=== PATIENT | female | born 1970 | race Hispanic/Latino ===

== ENCOUNTER 2018-03-01 04:23 | Emergency (ER) | payer BC, OTHER ==
[~2018-03-01 04:23] MED LIST: ALBU1.252 IH; AMOX-426 PO; CETI-101 PO; CHOL500050 PO; COLC0.6C3 PO; FOLI1TAB15 PO; HYDR200T82 PO; METH25VI17 IJ; NAPR-1192 PO; PANT40TA25 PO; PRAV20TA4 PO; PRED20TA3 PO; TOFA11TA PO
[2018-03-01] MEDS ORDERED: MAG HYDROX/AL HYDROX/SIMETH ES 30 ML SUSP UDCUP ONE (04:44)
[2018-03-01] MEDS ORDERED: HYDROXYZINE HCL 25 MG TABLET ONE (04:44)
[2018-03-01] MEDS ORDERED: LIDOCAINE HCL 2% VISCOUS 15 ML UDCUP ONE (04:44)
[2018-03-01] MEDS ORDERED: ACETAMINOPHEN-CODEINE ELIXIR 5 ML UDCUP ONE (04:45)
[2018-03-01 05:01] LABS: BASOPHILS % (AUTO) 0.5 % (0.0-5.0); EOSINOPHILS % (AUTO) 1.4 % (0.0-8.0); HEMATOCRIT 38.5 % (36-48); LYMPHOCYTES % (AUTO) 33.7 % (21.0-51.0); MEAN CORPUSCULAR HEMOGLOBIN 29.6 pg (27.0-33.0); MEAN CORPUSCULAR HGB CONC 34.5 g/dL (32.0-36.0); MEAN CORPUSCULAR VOLUME 85.8 fL (79-99); MONOCYTES % (AUTO) 6.1 % (3.0-13.0); NEUTROPHILS % (AUTO) 58.3 % (40.0-77.0); PLATELET COUNT (AUTO) 268 K/uL (130-400); RED BLOOD CELL COUNT(AUTO) 4.49 MIL/uL (4.00-5.50); RED CELL DISTRIBUTION WIDTH 14.5 % (11.0-15.5); WHITE BLOOD COUNT (AUTO) 8.7 K/uL (4.8-10.8)
[2018-03-01 05:11] LABS: CREATININE 0.8 mg/dL (0.5-1.5); POTASSIUM 3.3 mmol/L (3.5-5.1)
[2018-03-01 05:16] LABS: ALBUMIN 4.3 g/dL (3.5-5.0); BILIRUBIN,TOTAL 0.3 mg/dL (0.2-1.0); TOTAL PROTEIN, SERUM 8.6 g/dL (6.0-8.3)
[2018-03-01] MEDS ORDERED: ONDANSETRON HCL MDV 20ML 2 MG/ML VIAL ONE (05:24)
== END 2018-03-01 05:32 | disposition home or self-care (01) ==
LOC: EDH 04:23
DX: M06.80 Other specified rheumatoid arthritis, unspecified site (principal); R07.9 Chest pain, unspecified; R00.2 Palpitations; Z90.710 Acquired absence of both cervix and uterus; Z98.890 Other specified postprocedural states
CPT/HCPCS: 36415; 71045; 80053; 85025; 93005; 96374

== ENCOUNTER 2019-05-25 06:29 | Day surgery (SDC) | payer OTHER ==
[2019-05-25] VITALS (9 sets, daily range): BP systolic 101–140; BP diastolic 37–76
[~2019-05-25] VITALS: Ht 157.5 cm; Wt 63.5 kg
[~2019-05-25 06:29] MED LIST changes: -ALBU1.252 IH; -AMOX-426 PO; -CETI-101 PO; -CHOL500050 PO; -COLC0.6C3 PO; -NAPR-1192 PO; -PANT40TA25 PO; -PRED20TA3 PO; +SODIUM CHLORIDE 0.9% 1000ML 1,000 ML IV ONE
[2019-05-25] MEDS ORDERED: CHOL100040 PO (07:16)
[2019-05-25] MEDS ORDERED: PRED2.5T PO (07:16)
[2019-05-25] MEDS ORDERED: ALEN70TA10 PO (07:16)
[2019-05-25] MEDS ORDERED: LACT1CAP79 PO (07:16)
[2019-05-25] MEDS ORDERED: PROPOFOL 10 MG/ML 20ML VIAL IV ONE (09:01)
== END 2019-05-25 10:08 | disposition home or self-care (01) ==
LOC: ENDO 06:29 → DAH 06:29 → ENDO 10:08
PROVIDERS: ATTEND Internal Medicine
DX: K86.2 Cyst of pancreas (principal); K29.70 Gastritis, unspecified, without bleeding; E78.5 Hyperlipidemia, unspecified; K21.9 Gastro-esophageal reflux disease without esophagitis; E11.9 Type 2 diabetes mellitus without complications; M06.9 Rheumatoid arthritis, unspecified; M81.0 Age-related osteoporosis without current pathological fracture; Z90.49 Acquired absence of other specified parts of digestive tract; Z90.710 Acquired absence of both cervix and uterus; Z98.890 Other specified postprocedural states; Z79.899 Other long term (current) drug therapy; Z80.0 Family history of malignant neoplasm of digestive organs
CPT/HCPCS: 43238; 88108; 88305; A4215; A4606; J2704; J7030; 43232

== ENCOUNTER → 2019-10-05 | Outpatient (CLI) | payer OTHER ==
[~2019-10-05] MED LIST changes: +ALEN70TA10 PO; +CHOL100040 PO; +GADODIAMIDE 10 MMOL/20 ML VIAL IV ONE; +LACT1CAP79 PO; +PRED2.5T PO; -SODIUM CHLORIDE 0.9% 1000ML 1,000 ML IV ONE
== END | disposition home or self-care (01) ==
LOC: RAH 12:36
PROVIDERS: ATTEND Internal Medicine Gastroenterology
DX: K86.2 Cyst of pancreas (principal); R93.3 Abnormal findings on diagnostic imaging of other parts of digestive tract
CPT/HCPCS: 74183; A9579

== ENCOUNTER → 2020-09-20 | Outpatient (CLI) | payer BC, OTHER ==
[~2020-09-20] MED LIST changes: -ALEN70TA10 PO; +ALEN70TA69 PO; -GADODIAMIDE 10 MMOL/20 ML VIAL IV ONE
== END | disposition home or self-care (01) ==
LOC: RAH 09:02
PROVIDERS: ATTEND Internal Medicine Gastroenterology
DX: R13.10 Dysphagia, unspecified (principal); K21.9 Gastro-esophageal reflux disease without esophagitis
CPT/HCPCS: 74240

== ENCOUNTER → 2020-10-12 | Outpatient (CLI) | payer BC, OTHER ==
[~2020-10-12] MED LIST changes: +GADODIAMIDE 10 MMOL/20 ML VIAL IV ONE
== END | disposition home or self-care (01) ==
LOC: RAH 07:52
PROVIDERS: ATTEND Internal Medicine Gastroenterology
DX: K86.2 Cyst of pancreas (principal)
CPT/HCPCS: 74183; A9579

== ENCOUNTER 2021-04-16 08:57 | Observation (INO) | payer BC, OTHER ==
[~2021-04-16] VITALS: Ht 157.5 cm; Wt 64.7 kg
[~2021-04-16 08:57] MED LIST changes: -ALEN70TA69 PO; +ALEN70TA80 PO; -GADODIAMIDE 10 MMOL/20 ML VIAL IV ONE
[2021-04-16 08:59] VITALS: BP_SYST 87
[2021-04-16] MEDS ORDERED: KETOROLAC 30MG VIAL (30MG/ML) IV SCH (10:00)
[2021-04-16] MEDS ORDERED: ONDANSETRON 4MG INJ IVP SCH (10:00)
[2021-04-16 10:02] LABS: BASOPHILS % (AUTO) 0.1 % (0.0-5.0); EOSINOPHILS % (AUTO) 0.5 % (0.0-8.0); HEMATOCRIT 36.1 % (36-48); LYMPHOCYTES % (AUTO) 13.9 % (21.0-51.0); MEAN CORPUSCULAR HEMOGLOBIN 28.7 pg (27.0-33.0); MEAN CORPUSCULAR VOLUME 92.6 fL (79-99); MONOCYTES % (AUTO) 4.1 % (3.0-13.0); PLATELET COUNT (AUTO) 297 K/uL (130-400); WHITE BLOOD COUNT (AUTO) 8.4 K/uL (4.8-10.8)
[2021-04-16 10:25] LABS: APPEARANCE,URINE Cloudy (CLEAR); BILIRUBIN,URINE Small (NEGATIVE); COLOR,URINE Dark Yellow (YELLOW); GLUCOSE, URINE (UA) Negative (NEGATIVE); KETONES,URINE Negative (NEGATIVE); LEUKOCYTE ESTERASE ,URINE Negative (NEGATIVE); NITRATE,URINE Positive (NEGATIVE); OCCULT BLOOD,URINE Negative (NEGATIVE); PH,URINE 6.5 (5.0-8.0); PROTEIN,URINE Negative (NEGATIVE); UROBILINOGEN,URINE 0.2 mg/dL (0.2-1.0)
[2021-04-16 10:25] LABS: ALANINE AMINOTRANSFERASE 22 U/L (12-78); ALBUMIN 3.8 g/dL (3.5-5.0); ASPARTATE AMINOTRANSFERASE 23 U/L (10-37); BILIRUBIN,TOTAL 0.4 mg/dL (0.2-1.0); CARBON DIOXIDE 32 mmol/L (21-32); CHLORIDE 104 mmol/L (101-111); CREATINE KINASE, TOTAL 195 U/L (21-232); CREATININE 0.8 mg/dL (0.5-1.5); GLOMERULAR FILTR. RATE CALC 80 mL/min (>60); GLUCOSE,RANDOM 108 mg/dL (70-105); MYOGLOBIN 41 ng/mL (10-92); SODIUM SERUM 144 mmol/L (136-145); TOTAL PROTEIN, SERUM 7.9 g/dL (6.0-8.3); TROPONIN I < 0.04 ng/mL (0.00-0.06); UREA NITROGEN, BLOOD 13 mg/dL (7-18)
[2021-04-16 10:26] LABS: INR 1.01 (0.85-1.15); POTASSIUM 2.9 mmol/L (3.5-5.1)
[2021-04-16] MEDS ORDERED: POTASSIUM BICARB/CIT AC 25 MEQ TABLET.EFF PO SCH (10:30)
[2021-04-16 10:31] LABS: BACTERIA,URINE Many /HPF (None Seen); RBC,URINE 0-1 /HPF (0-1); SQUAMOUS EPITHELIAL CELL,UR Rare /HPF (0-2); WBC,URINE 0-1 /HPF (0-1)
[2021-04-16] MEDS ORDERED: MORPHINE 2 MG SYG IV PRN (13:30)
[2021-04-16] MEDS ORDERED: NITROGLYCERIN 0.4 MG SL TAB SL PRN (13:30)
[2021-04-16] MEDS ORDERED: LIDOCAINE HCL-MPF 1% 2ML VIAL IV PRN (13:30)
[2021-04-16] MEDS ORDERED: ONDANSETRON 4MG INJ IV PRN (13:30)
[2021-04-16] MEDS ORDERED: KCL 20 MEQ ERTAB PO PRN (13:30)
[2021-04-16] MEDS ORDERED: KETOROLAC 15MG/ML VIAL (15MG/ML) IV PRN (13:30)
[2021-04-16] MEDS ORDERED: POTASSIUM CHLORIDE 10MEQ/100ML 100 ML IV PRN (13:30)
[2021-04-16] MEDS ORDERED: ACETAMINOPHEN 325 MG TAB PO PRN ×2 (13:30)
[2021-04-16] MEDS ORDERED: POTASSIUM CHLORIDE 10% ELIXIR 20 MEQ/15 ML UDCUP PO PRN (13:30)
[2021-04-16 13:52] LABS: HEMOGLOBIN A1C 5.3 % (4.0-6.0)
[2021-04-16 13:58] LABS: THYROID STIMULATING HORMONE 2.19 uIU/mL (0.36-3.74)
[2021-04-16 14:03] LABS: B-TYPE NATRIURETIC PEPTIDE 63 pg/mL (0-100)
[2021-04-16 14:39] LABS: ERYTHROCYTE SEDIMENTATION RATE 55 MM/HR (0-30)
[2021-04-16 15:36] LABS: CREATININE 0.8 mg/dL (0.5-1.5); POTASSIUM 3.9 mmol/L (3.5-5.1)
[2021-04-16 17:02] VITALS: BP 139/70
[2021-04-16 17:18] VITALS: BP 114/60
[2021-04-16] MEDS ORDERED: PANTOPRAZOLE 40 MG TAB DR PO ONE (17:45)
[2021-04-16] MEDS ORDERED: COLCHICINE 0.6 MG TABLET PO ONE (18:30)
[2021-04-16] MEDS: 0.9%NACL 1000ML 1,000 ML IV SCH (18:33)
[2021-04-16] MEDS: IBUPROFEN 400 MG TABLET PO SCH (18:33)
[2021-04-16] MEDS ORDERED: PREDNISONE 5 MG TABLET PO SCH (21:00)
[2021-04-16] MEDS ORDERED: SULFASALAZINE 500 MG TAB.DR PO SCH (21:00)
[2021-04-16 22:30] VITALS: BP 111/48
[2021-04-16] MEDS ORDERED: PRAV40TA3 PO (23:06)
[2021-04-16] MEDS ORDERED: UPAD15TA PO (23:06)
[2021-04-16] MEDS ORDERED: SULF500T8 PO (23:06)
[2021-04-16] MEDS ORDERED: MONT10TA21 PO (23:06)
[2021-04-16] MEDS ORDERED: HYDR200T4 PO (23:06)
[2021-04-16] MEDS ORDERED: ALEN70TA2 PO (23:06)
[2021-04-16] MEDS ORDERED: PANT40TA54 PO (23:06)
[2021-04-16] MEDS ORDERED: FOLI1 PO (23:06)
[2021-04-16] MEDS ORDERED: CHOL100040 PO (23:06)
[2021-04-16] MEDS ORDERED: METH2.5T6 PO (23:06)
[2021-04-16] MEDS ORDERED: PRED2.5T PO (23:06)
[2021-04-17] MEDS: IBUPROFEN 400 MG TABLET PO SCH (01:18)
[2021-04-17 04:15] VITALS: BP 92/62
[2021-04-17 04:32] LABS: BASOPHILS % (AUTO) 0.1 % (0.0-5.0); EOSINOPHILS % (AUTO) 0.5 % (0.0-8.0); LYMPHOCYTES % (AUTO) 16.7 % (21.0-51.0); MEAN CORPUSCULAR HEMOGLOBIN 28.5 pg (27.0-33.0); MEAN CORPUSCULAR HGB CONC 31.7 g/dL (32.0-36.0); MEAN CORPUSCULAR VOLUME 90.1 fL (79-99); MONOCYTES % (AUTO) 6.8 % (3.0-13.0); NEUTROPHILS % (AUTO) 75.4 % (40.0-77.0); PLATELET COUNT (AUTO) 250 K/uL (130-400); RED BLOOD CELL COUNT(AUTO) 3.33 MIL/uL (4.00-5.50); RED CELL DISTRIBUTION WIDTH 14.8 % (11.0-15.5)
[2021-04-17 04:57] LABS: CREATININE 0.8 mg/dL (0.5-1.5)
[2021-04-17 04:59] LABS: POTASSIUM 2.9 mmol/L (3.5-5.1)
[2021-04-17] MEDS: 0.9%NACL 1000ML 1,000 ML IV SCH ×2 (07:05→20:48)
[2021-04-17 07:30] VITALS: BP 120/73
[2021-04-17] MEDS: IBUPROFEN 600 MG TABLET PO SCH ×3 (07:58→23:36)
[2021-04-17] MEDS: HYDROXYCHLOROQUINE SULFATE 200 MG TAB PO SCH (08:00)
[2021-04-17] MEDS: MONTELUKAST SODIUM 10 MG TAB PO SCH (08:01)
[2021-04-17] MEDS: FOLIC ACID 1 MG TABLET PO SCH (08:05)
[2021-04-17] MEDS ORDERED: ASPIRIN 325 MG TABLET PO SCH (09:00)
[2021-04-17] MEDS ORDERED: HYDROXYCHLOROQUINE SULFATE 200 MG TAB PO SCH (09:00)
[2021-04-17] MEDS: VIT D3 PO SCH (09:00)
[2021-04-17] MEDS ORDERED: PANTOPRAZOLE 40 MG TAB DR PO SCH (09:00)
[2021-04-17] MEDS: SULFASALAZINE 500 MG TAB.DR PO SCH ×2 (09:00→21:00)
[2021-04-17] MEDS: POTASSIUM CHLORIDE 10% ELIXIR 20 MEQ/15 ML UDCUP PO SCH (10:24)
[2021-04-17] MEDS: COLCHICINE 0.6 MG TABLET PO SCH ×2 (10:45→21:13)
[2021-04-17 12:00] VITALS: BP 119/74
[2021-04-17] MEDS: CEFTRIAXONE 1G VIAL IVP SCH (15:12)
[2021-04-17 16:34] VITALS: BP 118/78
[2021-04-17 20:00] VITALS: BP 128/70
[2021-04-17] MEDS: PANTOPRAZOLE 40 MG TAB DR PO SCH (20:48)
[2021-04-17] MEDS ORDERED: ATORVASTATIN 10 MG TABLET PO SCH (21:00)
[2021-04-17] MEDS ORDERED: RINVOQ 15 MG PO SCH (21:00)
[2021-04-17 23:43] VITALS: BP 120/74
[2021-04-18 04:00] VITALS: BP 137/85
[2021-04-18 05:40] LABS: BASOPHILS % (AUTO) 0.3 % (0.0-5.0); EOSINOPHILS % (AUTO) 1.4 % (0.0-8.0); HEMATOCRIT 31.2 % (36-48); LYMPHOCYTES % (AUTO) 29.9 % (21.0-51.0); MEAN CORPUSCULAR HEMOGLOBIN 27.8 pg (27.0-33.0); MEAN CORPUSCULAR HGB CONC 30.8 g/dL (32.0-36.0); MEAN CORPUSCULAR VOLUME 90.4 fL (79-99); MONOCYTES % (AUTO) 5.2 % (3.0-13.0); NEUTROPHILS % (AUTO) 62.9 % (40.0-77.0); PLATELET COUNT (AUTO) 247 K/uL (130-400); RED BLOOD CELL COUNT(AUTO) 3.45 MIL/uL (4.00-5.50); WHITE BLOOD COUNT (AUTO) 5.8 K/uL (4.8-10.8)
[2021-04-18 05:58] LABS: CREATININE 0.8 mg/dL (0.5-1.5); CRP QUANTITATIVE 160.5 mg/L (0.00-9.0); POTASSIUM 3.7 mmol/L (3.5-5.1)
[2021-04-18 06:51] LABS: ERYTHROCYTE SEDIMENTATION RATE 85 MM/HR (0-30)
[2021-04-18] MEDS: PANTOPRAZOLE 40 MG TAB DR PO SCH (07:41)
[2021-04-18] MEDS: IBUPROFEN 600 MG TABLET PO SCH (07:41)
[2021-04-18] MEDS: HYDROXYCHLOROQUINE SULFATE 200 MG TAB PO SCH (07:41)
[2021-04-18] MEDS: VIT D3 PO SCH (07:42)
[2021-04-18] MEDS: FOLIC ACID 1 MG TABLET PO SCH (07:42)
[2021-04-18] MEDS: SULFASALAZINE 500 MG TAB.DR PO SCH (07:42)
[2021-04-18] MEDS: COLCHICINE 0.6 MG TABLET PO SCH (07:42)
[2021-04-18] MEDS: MONTELUKAST SODIUM 10 MG TAB PO SCH (07:42)
[2021-04-18] MEDS: POTASSIUM CHLORIDE 10% ELIXIR 20 MEQ/15 ML UDCUP PO SCH (07:42)
[2021-04-18] MEDS: 0.9%NACL 1000ML 1,000 ML IV SCH (07:44)
[2021-04-18 08:00] VITALS: BP 128/78
[2021-04-18] MEDS ORDERED: PREDNISONE 5 MG TABLET PO SCH (09:00)
[2021-04-18] MEDS ORDERED: POTASSIUM CHLORIDE 10% ELIXIR 20 MEQ/15 ML UDCUP PO SCH (09:00)
[2021-04-18] MEDS ORDERED: COLC0.6T73 PO (09:19)
[2021-04-18] MEDS ORDERED: NAPR-1113 PO (09:19)
[2021-04-18] MEDS: CEFTRIAXONE 1G VIAL IVP SCH (10:31)
[2021-04-18 11:31] VITALS: BP 118/71
[2021-04-18] MEDS ORDERED: CEFU500T67 PO (13:58)
[2021-04-18] MEDS ORDERED: PANT40TA54 PO (14:00)
[2021-04-18] MEDS ORDERED: NAPROXEN 250 MG TAB PO SCH (21:00)
== END 2021-04-18 14:43 | disposition home or self-care (01) ==
LOC: EDH 08:57 → EDHIP 13:18 → 4CH 21:52
PROVIDERS: ADMIT Internal Medicine; ATTEND Internal Medicine
DX: I30.9 Acute pericarditis, unspecified (principal); E87.6 Hypokalemia; M06.9 Rheumatoid arthritis, unspecified; N39.0 Urinary tract infection, site not specified; I11.9 Hypertensive heart disease without heart failure; D84.9 Immunodeficiency, unspecified; D64.9 Anemia, unspecified; E78.5 Hyperlipidemia, unspecified; J44.9 Chronic obstructive pulmonary disease, unspecified; Z79.52 Long term (current) use of systemic steroids; Z79.83 Long term (current) use of bisphosphonates; Z79.899 Other long term (current) drug therapy; Z90.710 Acquired absence of both cervix and uterus
CPT/HCPCS: 36415 ×3; 71045; 80048 ×3; 80053; 80061; 81001; 82550; 83036; 83735; 83874; 83880; 84132; 84443; 84484 ×3; 85025 ×3; 85610; 85651 ×2; 86140 ×2; 87077; 87088; 87186; 93005 ×3; 93306; 93356; 96361 ×3; 96365; 96366; 96375 ×2; 96376; 99285; G0378 ×48; J0696 ×2; J1885; J2405; J7030 ×2; J7512 ×2

== ENCOUNTER → 2023-01-20 | Outpatient (CLI) | payer BC, OTHER ==
[~2023-01-20] MED LIST changes: -ALEN70TA80 PO; +ALEN70TA85 PO; +FOLI1 PO; -FOLI1TAB15 PO; +GADOTERATE MEGLUMINE 10 MMOL/20 ML VIAL IV ONE; +HYDR200T4 PO; -HYDR200T82 PO; -LACT1CAP79 PO; +LIDOP TD; +METH2.5T6 PO; +METH2.5T7 PO; -METH25VI17 IJ; +MONT-46 PO; +PANT40TA54 PO; -PRAV20TA4 PO; +PRAV40TA3 PO; +SULF500T PO; +SULF500T8 PO; -TOFA11TA PO; +UPAD15TA PO
== END | disposition home or self-care (01) ==
LOC: RAH 07:40
PROVIDERS: ATTEND Internal Medicine Gastroenterology
DX: K86.2 Cyst of pancreas (principal); Z90.49 Acquired absence of other specified parts of digestive tract
CPT/HCPCS: 74183; A9575

== ENCOUNTER 2023-05-04 10:58 | Emergency (ER) | payer BC, OTHER ==
[~2023-05-04] VITALS: Ht 157.5 cm; Wt 68.0 kg
[~2023-05-04 10:58] MED LIST changes: -GADOTERATE MEGLUMINE 10 MMOL/20 ML VIAL IV ONE; -HYDR200T4 PO; +HYDR200T75 PO
[2023-05-04] MEDS ORDERED: DEXAMETHASONE SOD PHOSPHATE 4 MG/ML 1ML VIAL IVP ONE (11:30)
[2023-05-04] MEDS ORDERED: KETOROLAC 15MG/ML VIAL (15MG/ML) IV ONE (11:30)
[2023-05-04 12:05] LABS: BASOPHILS % (AUTO) 0.2 % (0.0-5.0); EOSINOPHILS % (AUTO) 0.6 % (0.0-8.0); HEMATOCRIT 36.9 % (36-48); LYMPHOCYTES % (AUTO) 12.3 % (21.0-51.0); MEAN CORPUSCULAR HEMOGLOBIN 29.1 pg (27.0-33.0); MEAN CORPUSCULAR HGB CONC 31.7 g/dL (32.0-36.0); MEAN CORPUSCULAR VOLUME 91.8 fL (79-99); MONOCYTES % (AUTO) 4.7 % (3.0-13.0); NEUTROPHILS % (AUTO) 81.8 % (40.0-77.0); PLATELET COUNT (AUTO) 232 K/uL (130-400); RED BLOOD CELL COUNT(AUTO) 4.02 MIL/uL (4.00-5.50); RED CELL DISTRIBUTION WIDTH 15.7 % (11.0-15.5); WHITE BLOOD COUNT (AUTO) 11.5 K/uL (4.8-10.8)
[2023-05-04 12:42] LABS: ALBUMIN 3.8 g/dL (3.5-5.0); CREATININE 0.7 mg/dL (0.5-1.5); TOTAL PROTEIN, SERUM 7.6 g/dL (6.0-8.3)
[2023-05-04 12:44] LABS: POTASSIUM 2.9 mmol/L (3.5-5.1)
[2023-05-04 13:55] LABS: APPEARANCE,URINE CLEAR (CLEAR); BILIRUBIN,URINE NEGATIVE (NEGATIVE); COLOR,URINE YELLOW (YELLOW); GLUCOSE, URINE (UA) NEGATIVE (NEGATIVE); KETONES,URINE NEGATIVE (NEGATIVE); LEUKOCYTE ESTERASE ,URINE NEGATIVE Leu/uL (NEGATIVE); NITRATE,URINE NEGATIVE (NEGATIVE); OCCULT BLOOD,URINE NEGATIVE (NEGATIVE); PH,URINE 6.5 (5.0-8.0); PROTEIN,URINE 20 mg/dL (NEGATIVE); UROBILINOGEN,URINE 0.2 mg/dL (0.2-1.0)
[2023-05-04 14:02] LABS: BACTERIA,URINE RARE /HPF (None Seen); MUCUS,URINE FEW LPF (None Seen); SQUAMOUS EPITHELIAL CELL,UR RARE /HPF (0-2)
[2023-05-04] MEDS ORDERED: KCL 20 MEQ ERTAB PO ONE (14:30)
[2023-05-04] MEDS ORDERED: NAPR375T6 PO (15:00)
[2023-05-04] MEDS ORDERED: COLC0.6T73 PO ×2 (15:00)
[2023-05-04] MEDS ORDERED: POTA20PA41 PO (15:27)
[2023-05-04 15:32] VITALS: BP 132/80
== END 2023-05-04 15:31 | disposition home or self-care (01) ==
LOC: EDH 10:58
DX: I30.9 Acute pericarditis, unspecified (principal); Z90.710 Acquired absence of both cervix and uterus; Z90.49 Acquired absence of other specified parts of digestive tract; Z79.899 Other long term (current) drug therapy; Z98.890 Other specified postprocedural states
CPT/HCPCS: 93306; 99284; 96374; 71045; 96375; 84484; 80053; 85025; 83605; 86140; 81001; 36415; 93005; J1100; J1885

== ENCOUNTER → 2023-05-19 | Outpatient (CLI) | payer BC, OTHER ==
[~2023-05-19] MED LIST changes: +COLC0.6T73 PO; +NAPR375T6 PO; +POTA20PA41 PO
[2023-05-19 16:34] LABS: BASOPHILS % (AUTO) 0.3 % (0.0-5.0); EOSINOPHILS % (AUTO) 0.5 % (0.0-8.0); HEMATOCRIT 37.7 % (36-48); LYMPHOCYTES % (AUTO) 13.8 % (21.0-51.0); MEAN CORPUSCULAR VOLUME 90.2 fL (79-99); MONOCYTES % (AUTO) 4.6 % (3.0-13.0); NEUTROPHILS % (AUTO) 80.5 % (40.0-77.0); PLATELET COUNT (AUTO) 291 K/uL (130-400); RED BLOOD CELL COUNT(AUTO) 4.18 MIL/uL (4.00-5.50); WHITE BLOOD COUNT (AUTO) 7.6 K/uL (4.8-10.8)
[2023-05-19 16:47] LABS: CREATININE 0.8 mg/dL (0.5-1.5); CRP QUANTITATIVE 19.6 mg/L (0.00-9.0); POTASSIUM 3.6 mmol/L (3.5-5.1)
== END | disposition home or self-care (01) ==
LOC: LAB 15:19
PROVIDERS: ATTEND Internal Medicine Cardiovascular Disease
DX: E78.5 Hyperlipidemia, unspecified (principal); I31.9 Disease of pericardium, unspecified
CPT/HCPCS: 36415; 80048; 85025; 86140

== ENCOUNTER → 2024-03-18 | Outpatient (CLI) | payer BC, OTHER ==
[~2024-03-18] MED LIST changes: +GADOTERATE MEGLUMINE 10 MMOL/20 ML VIAL IV ONE
== END | disposition home or self-care (01) ==
LOC: RAH 13:01
PROVIDERS: ATTEND Internal Medicine Gastroenterology
DX: K86.2 Cyst of pancreas (principal); R16.0 Hepatomegaly, not elsewhere classified
CPT/HCPCS: 74183; A9575

== ENCOUNTER → 2025-04-24 | Outpatient (CLI) | payer BC, OTHER ==
[~2025-04-24] MED LIST changes: -GADOTERATE MEGLUMINE 10 MMOL/20 ML VIAL IV ONE; +NAPR-1505 PO; -NAPR375T6 PO; -PRAV40TA3 PO; +PRAV40TA62 PO
--- NOTE | 2025-04-24 18:34 | HMCIMG ---
US PELVIC NON-OB COMP HISTORY: Pelvic pain COMPARISON: None TECHNIQUE: Transabdominal pelvic ultrasound study was performed. FINDINGS: The uterus has been removed. Right ovary is not seen. The left ovary measures 1.5 x 1.2 x 1.3 cm. Flow is seen in the left ovary. No free fluid is seen in the cul-de-sac. IMPRESSION: 1. No adnexal mass is seen.
== END | disposition home or self-care (01) ==
LOC: RAH 12:26
PROVIDERS: ATTEND Family Medicine
DX: R10.2 Pelvic and perineal pain (principal); Z90.710 Acquired absence of both cervix and uterus
CPT/HCPCS: 76856

== ENCOUNTER 2025-08-21 02:50 | Emergency (ER) | payer BC, OTHER ==
[~2025-08-21] VITALS: Ht 157.5 cm; Wt 68.0 kg
[~2025-08-21 02:50] MED LIST changes: -COLC0.6T73 PO; +COLC0.6T79 PO
--- NOTE | 2025-08-21 03:15 | ERN ---
ED Note History of Present Illness Stated Complaint: CP Chief Complaint: Chest Pain Time Seen by MD: 02:53 Dictation: This is a 55-year-old female who presents to the emergency room with complaints of midsternal chest pain which is burning in nature. There is no radiation to left arm jaw. No nausea vomitings. No sour eructations. She had a cholecystectomy in the past. No diaphoresis no fever chills or rigors. No history of any palpitations. Patient was recently diagnosed with a UTI and she has been on antibiotics. Patient has been off her disease modifying agents due to UTI. She began experiencing mid chest pain and extremely tender to touch. He denied worsening chest pain on leaning forward. Temperature 98.8 pulse 81 respirations 20 blood pressure 143/77 with a pulse oximetry of 100% on room air Her chronic medical problems include rheumatoid arthritis on chloroquine, methotrexate, Rinvoq and prednisone daily, history of pericarditis, UTI Allergies: Coded Allergies: No Known Drug Allergies (Unverified Allergy, Unknown, 06/11/16) Home Meds Active Scripts Potassium Chloride (Klor-Con) 20 Meq Packet, 20 MEQ PO DAILY for 5 Days, #5 PKT Prov:HARSHIL MUNOZ NP 05/04/23 Naproxen (Naproxen) 375 Mg Tablet., 375 MG PO BID for 10 Days, #20 TAB Prov:HARSHIL MUNOZ HEALTH AND PHYSICAL EDUCATION TEACHER 05/04/23 Colchicine (Colchicine) 0.6 Mg Tablet, 0.6 MG PO DAILY for 9 Days, #9 TAB Prov:HARSHIL MUNOZ HEALTH AND PHYSICAL EDUCATION TEACHER 05/04/23 Colchicine (Colchicine) 0.6 Mg Tablet, 0.6 MG PO BID for 1 Day, #2 TAB Prov:HARSHIL MUNOZ HEALTH AND PHYSICAL EDUCATION TEACHER 05/04/23 Lidocaine (Lidoderm Patch 5%) 1 Patch Patch, 1 PATCH TD DAILY for 30 Days, #30 ADH.PATCH 0 Refills Prov:GRADY MAHER MD 12/01/22 Pantoprazole Sodium (Pantoprazole Sodium) 40 Mg Tablet., 40 MG PO BID, #20 TAB 0 Refills Prov:YIN REAL MD 04/18/21 Reported Medications Methotrexate Sodium (Methotrexate Sodium) 2.5 Mg Tablet, 5 TAB PO QWEEK 12/01/22 Sulfasalazine (Azulfidine) 500 Mg Tablet, 2 TAB PO BID 12/01/22 Upadacitinib (Rinvoq ER) 15 Mg Tab.er.24h, 15 MG PO HS, TAB 04/16/21 Montelukast Sodium (Singulair 10Mg) 10 Mg Tab, 10 MG PO HS, TAB 04/16/21 Pravastatin Sodium (Pravastatin Sodium) 40 Mg Tablet, 40 MG PO HS, TAB 04/16/21 Alendronate Sodium (Fosamax) 70 Mg Tablet, 70 MG PO QWEEK, TAB 04/16/21 Methotrexate Sodium (Methotrexate) 2.5 Mg Tablet, 2.5 MG PO QWEEK, TAB 04/16/21 Cholecalciferol (Vitamin D3) (Vitamin D3) 25 Mcg Capsule, 25 MCG PO DAILY, CAP 04/16/21 Prednisone (Prednisone) 2.5 Mg Tablet, 2.5 MG PO DAILY, TAB 04/16/21 Hydroxychloroquine Sulfate (Hydroxychloroquine Sulfate) 200 Mg Tablet, 300 MG PO DAILY, TAB 04/16/21 Folic Acid (Folvite) 1 Mg Tab, 1 MG PO DAILY, TAB 04/16/21 Sulfasalazine (Sulfasalazine) 500 Mg Tablet, 1000 MG PO BID, TAB 04/16/21 Past Medical History Past Medical History: Heart Disease, UTI, Other Additional Past Medical Hx: RA, PERICARDITIS Surgical History: Hysterectomy, Cholecystectomy, Other Surgical History Other: SHOULDER, ELBOW, KNEE SX Family History: Negative Social History: Negative, Lives with family History: Not Applicable RN Note Reviewed/Agreed w/PFSH: Yes Review of System Dictation Constitutional: Negative for fever,chills, and weight loss Eyes: Negative for injury, pain,redness, and discharge ENT: Negative for injury,pain or swelling Cardiovascular: Positive for chest pain and tenderness, palpitations, and denies edema Respiratory: Negative for shortness of breath, cough, and wheezing, Abdomen/GI: Negative for abdominal pain, nausea, vomiting, diarrhea, and constipation Back: Negative for injury and pain : Negative for injury, bleeding and discharge MS/Extremity: Negative for injury and deformity Skin: Negative for rash, and discoloration Neuro: Negative for headache, weakness, numbness, tingling, and seizure Psych: Negative for suicide ideation, homicidal ideation, and hallucinations Initial Vital Sign VS Vital Signs Date Time Temp Pulse Resp B/P (MAP) Pulse Ox O2 Delivery O2 Flow Rate FiO2 08/21/25 02:51 98.8 81 20 143/77 100 Room Air 08/21/25 03:50 0 21 Physical Exam Dictation General: awake, alert, NAD overweight female Head/Face: Normocephalic, atraumatic Eyes: PERRL, EOMI, vision at baseline ENT: oral cavity clear, TMs clear, no signs of infection Neck: Trachea midline, supple, no nuchal rigidity Cardiovascular: RRR, normal S1/S2, No MRGs, no JVD tenderness to palpation of the costochondral junctions, no pericardial rub Respiratory: CTAB, no respiratory distress, No rales or wheezes Abdomen: Soft, non-tender, non-distended, normal bowel sounds, no guarding or rebound. Skin: Warm, dry, normal turgor, no rash MS/Extremity: Pulses equal, no cyanosis, neurovascular intact, FROM Neuro: COAx4, GCS 15, strength 5/5, CN 2-12 intact, normal cerebellar exam, normal gait, Psych: Normal behavior, mood, and affect normal Extremities-trace edema without any palpable cords, Homans sign is negative Results (Laboratory/Radiology) Laboratory/Radiology Laboratory Tests Test 08/21/25 03:26 08/21/25 03:36 White Blood Count 9.4 K/uL (4.8-10.8) Red Blood Count 3.99 MIL/uL (4.00-5.50) L Hemoglobin 11.6 g/dL (12.0-16.0) L Hematocrit 36.8 % (36-48) Mean Corpuscular Volume 92.2 fL (79-99) Mean Corpuscular Hemoglobin 29.1 pg (27.0-33.0) Mean Corpuscular Hemoglobin Concent 31.5 g/dL (32.0-36.0) L Red Cell Distribution Width 14.5 % (11.0-15.5) Platelet Count 266 K/uL (130-400) Mean Platelet Volume 10.7 fL (7.5-10.5) H Immature Granulocyte % (Auto) 0.5 % (0-1) Neutrophils (%) (Auto) 78.9 % (40.0-77.0) H Lymphocytes (%) (Auto) 15.4 % (21.0-51.0) L Monocytes (%) (Auto) 4.6 % (3.0-13.0) Eosinophils (%) (Auto) 0.5 % (0.0-8.0) Basophils (%) (Auto) 0.1 % (0.0-5.0) Neutrophils # (Auto) 7.4 K/uL (1.8-7.7) Lymphocytes # (Auto) 1.5 K/uL (1.0-4.8) Monocytes # (Auto) 0.4 K/uL (0.1-1.0) Eosinophils # (Auto) 0.05 K/uL (0.00-0.70) Basophils # (Auto) 0.01 K/uL (0.00-0.20) Absolute Immature Granulocyte (auto 0.05 K/uL (0-1) Nucleated Red Blood Cells 0.0 % (0.0-0.19) Sodium Level 144 mmol/L (136-145) Potassium Level 3.5 mmol/L (3.5-5.1) Chloride Level 104 mmol/L (101-111) Carbon Dioxide Level 29 mmol/L (21-32) Blood Urea Nitrogen 13 mg/dL (7-18) Creatinine 0.7 mg/dL (0.5-1.0) Glomerular Filtration Rate Calc 101 mL/min (>90) Random Glucose 101 mg/dL (70-105) Total Calcium 9.0 mg/dL (8.5-10.1) Total Creatine Kinase 138 U/L (21-232) # Troponin I High Sensitivity 8.8 ng/L (4-50) Urine Color YELLOW (YELLOW) Urine Appearance CLEAR (CLEAR) Urine pH 6.0 (5.0-8.0) Urine Specific [place] 1.023 (1.001-1.031) Urine Protein NEGATIVE mg/dL (NEGATIVE) Urine Glucose (UA) NEGATIVE mg/dL (NEGATIVE) Urine Ketones NEGATIVE mg/dL (NEGATIVE) Urine Occult Blood +- (TRACE) (NEGATIVE) H Urine Nitrate NEGATIVE (NEGATIVE) Urine Bilirubin NEGATIVE mg/dL (NEGATIVE) Urine Urobilinogen 0.2 mg/dL (0.2-1.0) Urine Leukocyte Esterase NEGATIVE Alexis/uL Urine RBC 6-10 /HPF (0-1) H Urine WBC 6-10 /HPF (0-1) H Urine Squamous Epithelial Cells RARE /HPF (0-2) Urine Bacteria FEW /HPF (None Seen) Labs Reviewed?: Yes ED Course ED Course Orders Procedure Category Date Status Time Vital Signs Per CPOE 08/21/25 Transmitted Routine 02:52 Chest 1vw RAD 08/21/25 Resulted 02:52 12 Lead Ekg Tracing- EKG 08/21/25 Complete Technical 02:52 Oxygen By Nc/Pulse Ox CPOE 08/21/25 Transmitted 02:52 Maintain Iv CPOE 08/21/25 Transmitted 02:52 Iv Insertion CPOE 08/21/25 Transmitted 02:52 Cardiac Monitoring CPOE 08/21/25 Transmitted 02:52 Pulse Oximetry With CPOE 08/21/25 Transmitted Vs And Prn 02:52 Cbc With Differential LAB 08/21/25 Complete 02:52 Activity: Br W/Brp CPOE 08/21/25 Transmitted With Assist 02:52 Urinalysis Profile LAB 08/21/25 Complete 02:52 Basic Metabolic Panel LAB 08/21/25 Complete 02:52 Ketorolac PHA 08/21/25 Complete Tromethamine 30mg/Ml 03:30 Ondansetron 4mg Inj PHA 08/21/25 Complete (Zofran 4mg Inj) 03:30 Lidocaine Hcl 2% PHA 08/21/25 Complete Viscous (Lidocaine Hcl 03:30 Mag/Alum/Simeth 30ml PHA 08/21/25 Complete (Maalox Plus 30ml) 03:30 Dicyclomine Hcl PHA 08/21/25 Complete (Bentyl 10mg/5ml 03:30 Cardiac Panel LAB 08/21/25 Complete 03:26 Culture Urine LYLE 08/21/25 In Process 04:08 Dexamethasone 4mg/Ml PHA 08/21/25 Complete 1ml Vial (Dexametha 05:00 Current Medications Medications (Trade) Dose Ordered Sig/Chikis Route PRN Reason Start Time Stop Time Status Last Admin Dose Admin Al Hydroxide/Mg Hydroxide (MAALox PLUS 30ML) 30 ml ONCE ONCE PO 08/21/25 03:30 08/21/25 03:31 DC 08/21/25 03:31 Dexamethasone Sodium Phosphate (dexaMETHasone 4MG/ML 1ML VIAL) 6 mg ONCE ONCE IVP 08/21/25 05:00 08/21/25 05:02 DC 08/21/25 05:22 Dicyclomine HCl (Bentyl 10mg/5ml Syrup) 10 mg ONCE ONCE PO 08/21/25 03:30 10/13/25 03:31 DC 08/21/25 03:31 Ketorolac Tromethamine (toRADol) 30 mg ONCE ONCE IV 08/21/25 03:30 08/21/25 03:31 DC 08/21/25 03:32 Lidocaine HCl (Lidocaine HCl 2% Viscous) 10 ml ONCE ONCE PO 08/21/25 03:30 08/21/25 03:31 DC 08/21/25 03:31 Ondansetron HCl (zoFRAN 4MG INJ) 4 mg ONCE ONCE IVP 08/21/25 03:30 08/21/25 03:31 DC 08/21/25 03:31 Vital Signs Date Time Temp Pulse Resp B/P (MAP) Pulse Ox O2 Delivery O2 Flow Rate FiO2 08/21/25 05:59 97.5 86 16 126/60 98 Room Air* 0 21 08/21/25 04:45 97.7 84 17 127/59 99 Room Air* 0 21 08/21/25 03:50 97.9 88 19 123/56 98 Room Air* 0 21 08/21/25 02:51 98.8 81 20 143/77 100 Room Air We will perform diagnostic labs, advanced imaging and administer medications according to the patient's complaint. Once the results are available, will review and personally interpreted the labs to rule out any acute life- threatening emergency the trach require immediate intervention and treatment. I will then re-evaluate the patient after treatment and diagnostic exams have return to determine whether the patient requires any further testing, can safely be discharged home or need further admission to hospital for additional treatment and evaluation. Medical Decision Making MDM Differential diagnosis: Costochondritis, pericarditis, chest wall pain, cardiac, pleurisy This is a 55-year-old female who presents to the emergency room with complaints of midsternal chest pain which is burning in nature. There is no radiation to left arm jaw. No nausea vomitings. No sour eructations. She had a cholecystectomy in the past. No diaphoresis no fever chills or rigors. No history of any palpitations. Patient was recently diagnosed with a UTI and she has been on antibiotics. Patient has been off her disease modifying agents due to UTI. She began experiencing mid chest pain and extremely tender to touch. He denied worsening chest pain on leaning forward. Temperature 98.8 pulse 81 respirations 20 blood pressure 143/77 with a pulse oximetry of 100% on room air Her chronic medical problems include rheumatoid arthritis on chloroquine, methotrexate, Rinvoq and prednisone daily, history of pericarditis, UTI Labs reviewed CBC shows a hemoglobin of 11.6 otherwise with a normal limits. BNP 7 is also with a normal limits. Urinalysis had some occult blood and a few RBCs and WBCs however it was not an optimal specimen due to too many squamous cells. Chest x-ray was unremarkable for any acute infiltrate or pleural effusions. 6:00 a.m. patient responded very well to Toradol and dexamethasone and I reassured her that because she has been off her this is modifying agents she mi ght have had a flare-up of inflammation. 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 Rationale: Tests considered and ordered secondary to shared decision making include: Previous outside records reviewed: Old ER visits. Risk of complication and/or morbidity or mortality of patient management: None Medications-Per medication reconciliation Need for hospitalization: Patient does not meet criteria for hospitalization. Need for emergency major/minor surgery: No There are no social concerns with this patient. Prescription drug management Prescriptions will include symptomatic care Patient's prior external medical records from other ER visits were reviewed by me as indicated. Prior testing and results from previous visits were reviewed. Prior tests were taken into account with medical decision making and resource utilization, independent historian/historians were used to obtain complete medical history. I independently interpreted the test that were performed, results were reviewed by me and considered findings on radiology if ordered. Medical management and examination interpretation discussions were had by me with other qualified healthcare professionals as indicated for the patient's care. Problem List Problem List: (1) Costochondritis (2) Chest wall pain (3) Rheumatoid arthritis DX & DISP Disposition: Discharge Departure Impression: Primary Impression: Costochondritis Additional Impressions: Rheumatoid arthritis, Chest wall pain Condition: Stable Additional Instructions: Patient and the caregiver have been informed of all the diagnostic tests and the imaging conducted during the today's visit to the emergency room and has verbalized understanding of the results I have personally reviewed and interpreted all diagnostic exams performed here in the ER today as well as the vital signs documented by the nursing staff. The patient is now being discharged to home and should follow up with the primary care physician or the s pecialist as directed by the ER staff. Follow-up with primary care provider in 1 to 2 days. Take medications as directed here in the emergency room. Okay to continue home medications unless otherwise discussed during your visit in the emergency room today. Return to your nearest emergency room if symptoms worsen or if there is no improvement. Call 911 if you need immediate assistance. Take Tylenol or Motrin [id number] as needed and if no contraindications are present. Increase oral hydration. A wound culture or urine culture was ordered here in the emergency room department please follow-up with primary care provider and advise them to get repeat ports from our facility. If you had any Pradeep wrap/splints that were applied here, please do not remove them until you see your primary care or specialty. Referrals: JOHNATHON CARLSO MD (PCP) CASA SANDERS MD Aug 21, 2025 03:15
[2025-08-21] MEDS: MAG/ALUM/SIMETH 30 ML UDCUP PO ONE (03:31)
[2025-08-21] MEDS: LIDOCAINE HCL 2% VISCOUS 15 ML UDCUP PO ONE (03:31)
[2025-08-21] MEDS: DICYCLOMINE HCL 10 MG/5 ML ML PO ONE (03:31)
--- NOTE | 2025-08-21 03:45 | EKG ---
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
[2025-08-21 03:49] LABS: IMMATURE GRANULOCYTE ABSOLUTE 0.05 K/uL (0-1); NUCLEATED RED BLOOD CELLS 0.0 % (0.0-0.19); PLATELET COUNT (AUTO) 266 K/uL (130-400); RED BLOOD CELL COUNT(AUTO) 3.99 MIL/uL (4.00-5.50); RED CELL DISTRIBUTION WIDTH 14.5 % (11.0-15.5); WHITE BLOOD COUNT (AUTO) 9.4 K/uL (4.8-10.8)
[2025-08-21 04:02] LABS: APPEARANCE,URINE CLEAR (CLEAR); GLUCOSE, URINE (UA) NEGATIVE (NEGATIVE); LEUKOCYTE ESTERASE ,URINE NEGATIVE Leu/uL (NEGATIVE); NITRATE,URINE NEGATIVE (NEGATIVE); OCCULT BLOOD,URINE +- (TRACE) (NEGATIVE)
[2025-08-21 04:06] LABS: ADD UA MICROSCOPIC YES
[2025-08-21 04:07] LABS: CREATINE KINASE, TOTAL 138.0 U/L (21-232); CREATININE 0.7 mg/dL (0.5-1.0); GLOMERULAR FILTR. RATE CALC 101.0 mL/min (>90); GLUCOSE,RANDOM 101.0 mg/dL (70-105); SODIUM SERUM 144.0 mmol/L (136-145); UREA NITROGEN, BLOOD 13.0 mg/dL (7-18)
[2025-08-21 04:07] LABS: SQUAMOUS EPITHELIAL CELL,UR RARE /HPF (0-2)
--- NOTE | 2025-08-21 05:46 | HMCIMG ---
EXAM: CR Chest, 1 view CLINICAL HISTORY: Chest pain. COMPARISON: Chest radiograph dated 05/04/2023. FINDINGS: The lungs show no infiltrates or other acute findings. No pleural effusion or pneumothorax. The cardiomediastinal silhouette is within normal limits. No acute osseous abnormality. Mild dextrocurvature of the thoracic spine. Osteopenia. Degenerative osseous changes. IMPRESSION: No acute cardiopulmonary process is evident. Compared to the prior study, there is no significant interval change. /Jackson
[2025-08-21 05:59] VITALS: BP 126/60; PULSE 86; RESP 16; TEMP 97.6; O2SAT 98
== END 2025-08-21 06:08 | disposition home or self-care (01) ==
LOC: EDH 02:50
DX: M94.0 Chondrocostal junction syndrome [Tietze] (principal); M06.9 Rheumatoid arthritis, unspecified; I51.9 Heart disease, unspecified; Z79.52 Long term (current) use of systemic steroids; Z79.899 Other long term (current) drug therapy; Z87.440 Personal history of urinary (tract) infections; Z90.49 Acquired absence of other specified parts of digestive tract; Z90.710 Acquired absence of both cervix and uterus
CPT/HCPCS: 99284; 96374; 96375; 71045; 82550; 84484; 80048; 85025; 87086; 81001; 36415; 93005; J1100; J1885; J2405